=== PATIENT | female | born 1960 | race Caucasian/White ===

== ENCOUNTER 2016-04-25 10:38 | Outpatient (CLI) | payer MEDICARE, OTHER | END 2016-04-25 10:39 | disposition home or self-care (01) | DX: Z01.818 Encounter for other preprocedural examination (principal); N39.0 Urinary tract infection, site not specified; M16.11 Unilateral primary osteoarthritis, right hip; Z01.812 Encounter for preprocedural laboratory examination ==

== ENCOUNTER 2016-07-01 11:04 | Outpatient (CLI) | payer MEDICARE, OTHER | END 2016-07-01 11:05 | disposition home or self-care (01) | DX: R92.1 Mammographic calcification found on diagnostic imaging of breast (principal) ==

== ENCOUNTER 2016-08-11 08:40 | Emergency (ER) | payer MEDICARE, OTHER ==
[2016-08-11] MEDS ORDERED: HYDROmorphone 1 MG/ML SYRINGE IM STA (08:59)
[2016-08-11] MEDS ORDERED: PROMETHAZINE 25 MG/1 ML VIAL IM STA (08:59)
[2016-08-11] MEDS ORDERED: DEXAMETHASONE 10 MG/ML VIAL PO STA (09:00)
== END 2016-08-11 10:12 | disposition home or self-care (01) ==
DX: M54.5 Low back pain (principal); Z96.641 Presence of right artificial hip joint; Z98.890 Other specified postprocedural states; F17.200 Nicotine dependence, unspecified, uncomplicated; Z79.891 Long term (current) use of opiate analgesic; I10 Essential (primary) hypertension; F41.9 Anxiety disorder, unspecified; F32.9 Major depressive disorder, single episode, unspecified; E03.9 Hypothyroidism, unspecified

== ENCOUNTER 2018-12-20 08:00 | Outpatient (CLI) | payer MEDICARE, OTHER ==
[2018-12-20 19:16] LABS: BILIRUBIN,URINE NEGATIVE (NEGATIVE); GLUCOSE, URINE (UA) NEGATIVE (NEGATIVE); KETONES,URINE (UA) NEGATIVE (NEGATIVE); LEUKOCYTE ESTERASE, URINE NEGATIVE (NEGATIVE); NITRITE,URINE NEGATIVE (NEGATIVE); OCCULT BLOOD,URINE TRACE-LYSE (NEGATIVE); PROTEIN,URINE NEGATIVE (NEGATIVE); UROBILINOGEN,URINE 0.2 (NORMAL) E.U./dL (NORMAL)
[2018-12-20 19:21] LABS: CLARITY,URINE CLEAR (CLEAR)
== END 2018-12-20 23:59 | disposition home or self-care (01) ==
LOC: LAB.WCP 08:00
PROVIDERS: ATTEND Physician Assistant Medical
DX: N39.41 Urge incontinence (principal)
CPT/HCPCS: 81001; 81003; 87086

== ENCOUNTER 2019-05-08 06:54 | Emergency (ER) | payer MEDICARE, OTHER ==
--- NOTE | 2019-05-08 07:10 | ED Physician Documentation ---
PD HPI BACK PAIN - Stated complaint Stated Complaint: BACK PX - Chief complaint Chief Complaint: Back Pain - History obtained from History obtained from: Patient - History of Present Illness Timing - onset: How many days ago (5) Timing - duration: Days (5) Timing - details: Gradual onset Location: Lower, Right Quality: Pain Associated symptoms: No: Fever, Weakness, Numbness, Incontinent of urine Worsened by: Other (ambulating) Recently seen: Not recently seen - Additional information Additional information: This is a 58-year-old woman with a longstanding history of low back pain and sciatica who presents with complaints that the sciatic pain is out of control despite taking her regular diclofenac, 10 mg of OxyContin daily and 2 Flexeril twice a day. For the past 5 days the pain is getting progressively worse down the right thigh and into the calf where she is experiencing "charley horses". She is having to walk with a cane because of the pain but does not have true weakness in the leg. She has had a prior back surgery and right total hip replacement. She denies fever, nausea or vomiting, rash. She said what she has been given in the past as an injection of a muscle relaxer and an liquid pink oral medicine when she is coming to the emergency department has always helped her pain. She is on disability for depression and anxiety. Review of Systems Constitutional: denies: Fever Respiratory: denies: Cough GI: denies: Nausea, Vomiting : denies: Dysuria, Incontinent Skin: denies: Rash Musculoskeletal: reports: Back pain Neurologic: denies: Focal weakness, Numbness Psychiatric: reports: Anxiety PD PAST MEDICAL HISTORY - Past Medical History Cardiovascular: Hypertension Endocrine/Autoimmune: HyPOthyroidism Psych: Depression, Anxiety Musculoskeletal: Chronic back pain - Past Surgical History Past Surgical History: Yes General: Other Ortho: Hip replacement - Present Medications Home Medications: Ambulatory Orders Medication Instructions Recorded Confirmed Cholecalciferol (Vitamin D3) 5,000 unit PO DAILY 04/15/14 08/11/16 [Vitamin D] Cyclobenzaprine [Flexeril] 10 mg PO BID 04/15/14 08/11/16 Diclofenac Sodium 50 mg PO BID 04/15/14 08/11/16 Gabapentin 100 mg PO TID 04/15/14 08/11/16 Hydrochlorothiazide 25 mg PO DAILY 04/15/14 08/11/16 Ipratropium [place] [Atrovent Hfa] 2 puffs IH TID PRN 04/15/14 08/11/16 Methylphenidate HCl [Concerta] 54 mg PO DAILY 04/15/14 08/11/16 Oxycodone HCl [Oxycontin] 10 mg PO BID 04/15/14 08/11/16 Trazodone HCl 100 mg PO BIDAC 04/15/14 08/11/16 Ziprasidone [Geodon] 20 mg PO BID 04/15/14 08/11/16 lamoTRIgine [Lamictal] 50 mg PO DAILY 04/15/14 08/11/16 lisinopriL [Lisinopril] 40 mg PO DAILY 04/15/14 08/11/16 predniSONE [Prednisone] 40 mg PO DAILY #10 tablet 08/11/16 Lidocaine Patch 5% [Lidoderm Patch] 1 patch TOP DAILY PRN #10 patch 11/11/18 - Allergies Allergies/Adverse Reactions: Allergies Allergy/AdvReac Type Severity Reaction Status Date / Time albuterol sulfate * Allergy Severe Headache Verified 05/08/19 07:04 [From Combivent] ipratropium bromide * Allergy Severe Headache Verified 05/08/19 07:04 [From Combivent] meloxicam Allergy Severe Anaphylaxis Verified 05/08/19 07:04 varenicline tartrate * Allergy Severe Anaphylaxis Verified 05/08/19 07:04 [From Chantix] - Social History Does the pt smoke?: Yes Smoking Status: Current every day smoker Does the pt drink ETOH?: No Does the pt have substance abuse?: Yes - Immunizations Immunizations are current?: No Immunizations: TDAP >10years/unknown - POLST Patient has POLST: No PD ED PE NORMAL - Vitals Vital signs reviewed: Yes - General General: Alert and oriented X 3, Other (crying. obese. seated in wheelchair.) - HEENT HEENT: Atraumatic, PERRL - Derm Derm: Normal color, Warm and dry, No rash - Extremities Extremities: No deformity, Normal ROM s pain, No edema - Neuro Neuro: Alert and oriented X 3, scientific recruiter 2-12 intact, No motor deficit, No sensory deficit, Normal speech, Other (Reflexes are 1+ and symmetrical at the quadriceps bilaterally. She has a negative seated straight leg raise bilaterally.) - Psych Psych: Normal mood, Normal affect Results - Vitals Vitals: Vital Signs - 24 hr 05/08/19 05/08/19 07:02 08:07 Temperature 36.8 C 36.7 C Heart Rate 93 81 Respiratory 16 20 Rate Blood Pressure 154/97 H 169/97 H O2 Saturation 99 97 Oxygen O2 Source Room air PD MEDICAL DECISION MAKING - ED course Complexity details: reviewed old records, d/w patient, d/w family ED course: Patient has a longstanding history of sciatic disease that she is already prescribed Flexeril for and has OxyContin at home. She is taking diclofenac as well. She is has an acute flare without acute deficit. She is gotten good relief with Dilaudid and Phenergan injection in the past and also some "little pink liquid" that she swallowed which we assume is dexamethasone since I cannot find any indication of that being administered in the chart. She is ordered for 10 mg the next dexamethasone orally and 2 mg of Dilaudid 25 of Phenergan IM. Contact her primary care provider for further pain management. Departure - Departure Disposition: Home, Self Care Clinical Impression: Sciatica Qualifiers: Laterality: right Qualified Code(s): M54.31 - Sciatica, right side Back pain Qualifiers: Back pain location: low back pain Chronicity: chronic Back pain laterality: right Sciatica presence: with sciatica Sciatica laterality: sciatica of right side Qualified Code(s): M54.41 - Lumbago with sciatica, right side Instructions: ED Exercises Lumbar Muscles, ED Sciatica Follow-Up: Anna Torrez PA-C [Primary Care Provider] - Comments: Home today and rest. I did provide you some back stretching exercises that would be safe to do. Continue your chronic medications for your pain. Contact your primary care provider for further pain management. Discharge Date/Time: 05/08/19 08:26
[2019-05-08] MEDS ORDERED: DEXAMETHASONE 10 MG/ML VIAL PO STA (07:39)
[2019-05-08] MEDS ORDERED: HYDROmorphone 1 MG/ML CARPUJECT IM STA (07:39)
[2019-05-08] MEDS ORDERED: CHERRY SYRUP 10 ML UDC PO ONE (07:39)
[2019-05-08] MEDS ORDERED: PROMETHAZINE 25 MG/1 ML VIAL IM STA (07:39)
[2019-05-08 08:08] VITALS: BP 169/97
== END 2019-05-08 08:26 | disposition home or self-care (01) ==
LOC: ED 06:54
DX: M54.41 Lumbago with sciatica, right side (principal); F41.9 Anxiety disorder, unspecified; I10 Essential (primary) hypertension; Z96.641 Presence of right artificial hip joint; F17.200 Nicotine dependence, unspecified, uncomplicated
CPT/HCPCS: 96372; 99283; 99284; A9270; J1170

== ENCOUNTER 2019-05-11 07:40 | Emergency (ER) | payer MEDICARE, OTHER ==
[2019-05-11] MEDS ORDERED: DEXAMETHASONE 10 MG/ML VIAL IVP STA (07:59)
[2019-05-11] MEDS ORDERED: SODIUM CHLORIDE 0.9% 1,000 ML IV ONE (07:59)
[2019-05-11] MEDS ORDERED: KETOROLAC 30 MG/ML VIAL IVP STA (07:59)
--- NOTE | 2019-05-11 08:02 | ED Physician Documentation ---
PD HPI BACK PAIN - Stated complaint Stated Complaint: BACK PX - Chief complaint Chief Complaint: Back Pain - History obtained from History obtained from: Patient - History of Present Illness Timing - onset: How many days ago (5) Timing - duration: Days (5) Timing - details: Abrupt onset, Still present Location: Lower, Right Quality: Pain, Spasm, Sharp, Similar to prior episodes Associated symptoms: No: Fever, Weakness, Numbness, Incontinent of urine, Unable to urinate, Hematuria, Incontinent of stool Improves with: Rest, Position, Meds Worsened by: Movement Contributing factors: Other (stretching) Similar symptoms before: Diagnosis (sciatica) Recently seen: Emergency Dept - Additional information Additional information: 58-year-old female with history of ADHD and hypertension has developed sciatica about 5 days ago after she stretched. She states that she has had some charley horses and she has a bandlike constriction to the right thigh. She has had a hip replacement on the right side. She did get some relief for about 30 hours after a visit to the emergency department where she was administered dexamethasone and Dilaudid. She does have narcotic for use at home. She arrives to the emergency department today in tears with persistent pain. She denies current illness. Review of Systems Constitutional: denies: Fever Eyes: denies: Decreased vision Throat: denies: Sore throat Cardiac: denies: Chest pain / pressure Respiratory: reports: Cough, Wheezing. denies: Dyspnea GI: denies: Vomiting : denies: Dysuria Musculoskeletal: reports: Back pain Neurologic: denies: Generalized weakness, Focal weakness, Numbness PD PAST MEDICAL HISTORY - Past Medical History Cardiovascular: Hypertension Respiratory: COPD, Sleep apnea, CPAP use Neuro: None Endocrine/Autoimmune: HyPOthyroidism HEENT: None Psych: Depression, Anxiety Musculoskeletal: Chronic back pain - Past Surgical History Past Surgical History: Yes General: Other Ortho: Hip replacement - Present Medications Home Medications: Ambulatory Orders Medication Instructions Recorded Confirmed Cholecalciferol (Vitamin D3) 5,000 unit PO DAILY 04/15/14 08/11/16 [Vitamin D] Cyclobenzaprine [Flexeril] 10 mg PO BID 04/15/14 08/11/16 Diclofenac Sodium 50 mg PO BID 04/15/14 08/11/16 Gabapentin 100 mg PO TID 04/15/14 08/11/16 Hydrochlorothiazide 25 mg PO DAILY 04/15/14 08/11/16 Ipratropium [place] [Atrovent Hfa] 2 puffs IH TID PRN 04/15/14 08/11/16 Methylphenidate HCl [Concerta] 54 mg PO DAILY 04/15/14 08/11/16 Oxycodone HCl [Oxycontin] 10 mg PO BID 04/15/14 08/11/16 Trazodone HCl 100 mg PO BIDAC 04/15/14 08/11/16 Ziprasidone [Geodon] 20 mg PO BID 04/15/14 08/11/16 lamoTRIgine [Lamictal] 50 mg PO DAILY 04/15/14 08/11/16 lisinopriL [Lisinopril] 40 mg PO DAILY 04/15/14 08/11/16 - Allergies Allergies/Adverse Reactions: Allergies Allergy/AdvReac Type Severity Reaction Status Date / Time albuterol sulfate * Allergy Severe Headache Verified 05/11/19 07:55 [From Combivent] ipratropium bromide * Allergy Severe Headache Verified 05/11/19 07:55 [From Combivent] meloxicam Allergy Severe Anaphylaxis Verified 05/11/19 07:55 varenicline tartrate * Allergy Severe Anaphylaxis Verified 05/11/19 07:55 [From Chantix] - Social History Does the pt smoke?: Yes Smoking Status: Current every day smoker Does the pt drink ETOH?: No Does the pt have substance abuse?: Yes - Immunizations Immunizations are current?: No Immunizations: TDAP >10years/unknown - POLST Patient has POLST: No PD ED PE NORMAL - Vitals Vital signs reviewed: Yes (Tachycardic and hypertensive) - General General: Alert and oriented X 3, Well developed/nourished, Other (58-year-old female with tears in her eyes is complaining of back pain.) - HEENT HEENT: Atraumatic, PERRL, EOMI - Cardiac Cardiac: RRR, No murmur - Respiratory Respiratory: No respiratory distress, Other (scattered wheezes and rhonchi) - Abdomen Abdomen: Soft, Non tender - Back Back: No CVA TTP, No spinal TTP, Other (There is tenderness to the paraspinous muscles in the right lower lumbar region extending into the right sciatic notch.) - Derm Derm: Normal color, Warm and dry, No rash - Extremities Extremities: No deformity, No edema - Neuro Neuro: belt knife feeder 2-12 intact, No motor deficit, No sensory deficit, Normal speech Eye Opening: Spontaneous Motor: Obeys Commands Verbal: Oriented GCS Score: 15 - Psych Psych: Other (Mood is defeated and the affect is blunted.) Results - Vitals Vitals: Vital Signs - 24 hr 05/11/19 07:52 Temperature 36.7 C Heart Rate 113 H Respiratory 18 Rate Blood Pressure 160/103 H O2 Saturation 95 Oxygen O2 Source Room air - Labs Labs: Laboratory Tests 05/11/19 05/11/19 05/11/19 08:20 08:20 09:16 WBC 18.0 H RBC 5.14 Hgb 14.6 Hct 45.9 MCV 89.3 MCH 28.4 MCHC 31.8 L RDW 14.2 Plt Count 374 MPV 9.4 Neut # (Auto) Not Reportable Lymph # (Auto) Not Reportable [place] # (Auto) Not Reportable Eos # (Auto) Not Reportable Baso # (Auto) Not Reportable Absolute Nucleated RBC Not Reportable Total Counted 100 Band Neuts % (Manual) 0 Reactive Lymphs % (Man) 3 Abnorm Lymph % (Manual) 0 Nucleated RBC % Not Reportable Neutrophils # (Manual) 9.2 H Lymphocytes # (Manual) 7.4 H Monocytes # (Manual) 1.1 H Eosinophils # (Manual) 0.4 Basophils # (Manual) 0.0 Differential Comment MANUAL DIFFERENTIAL Platelet Estimate NORMAL (130-450,000) Platelet Morphology NORMAL APPEARANCE RBC Morph Micro Appear NORMAL APPEARANCE Sodium 138 Potassium 3.4 L Chloride 99 L Carbon Dioxide 27 Anion Gap 12.0 BUN 15 Creatinine 0.7 Estimated GFR (MDRD) 86 L Glucose 106 H Calcium 9.3 Total Bilirubin 0.8 AST 20 ALT 22 Alkaline Phosphatase 76 Total Protein 8.0 Albumin 4.2 Globulin 3.8 Albumin/Globulin Ratio 1.1 Lipase 29 Urine Color LT. YELLOW Urine Clarity CLEAR Urine pH 7.0 Ur Specific [place] 1.010 Urine Protein NEGATIVE Urine Glucose (UA) NEGATIVE Urine Ketones NEGATIVE Urine Occult Blood NEGATIVE Urine Nitrite NEGATIVE Urine Bilirubin NEGATIVE Urine Urobilinogen 0.2 (NORMAL) Ur Leukocyte Esterase NEGATIVE Ur Microscopic Review NOT INDICATED Urine Culture Comments NOT INDICATED Procedures - IVC sono (time) 0755 Bedside IVC sono: IVC measures (cm) (0.74), IVC collapsed c insp (cm) (complete), Dehydration (est 2+ liters deficit) PD MEDICAL DECISION MAKING - ED course Complexity details: reviewed old records, reviewed results, re-evaluated patient, considered differential, d/w patient ED course: 58-year-old female returns to the emergency department after successful treatment for sciatica 4 days ago. She has recurrence of her severe pain and charley horses. She arrives hypertensive and tachycardic and dehydration is suspected. The bedside ultrasound is used to interrogate the inferior vena cava and the vessel is small and completely collapsing consistent with a volume deficit of greater than 2 L. She is administered intravenous saline Toradol and dexamethasone. The patient has marked improvement in her symptoms without the use of narcotic pain reliever. Her white blood cell count is markedly elevated and the urine is processed. Departure - Departure Disposition: 01 Home, Self Care Clinical Impression: Dehydration Sciatica Qualifiers: Laterality: right Qualified Code(s): M54.31 - Sciatica, right side Condition: Stable Instructions: ED Dehydration, ED Sciatica Follow-Up: Anna Torrez PA-C [Primary Care Provider] -
[2019-05-11 08:37] LABS: BASOPHILS % (AUTO) 0.6 %; EOSINOPHILS % (AUTO) 0.3 %; HGB - HEMOGLOBIN 14.6 g/dL (12.0-16.0); LYMPHOCYTES % (AUTO) 35.7 %; MEAN CORPUSCULAR HEMOGLOBIN 28.4 pg (27.0-31.0); MEAN CORPUSCULAR HGB CONC 31.8 g/dL (32.0-36.0); MEAN CORPUSCULAR VOLUME 89.3 fL (81.0-99.0); MEAN PLATELET VOLUME 9.4 fL (7.9-10.8); MONOCYTES % (AUTO) 8.6 %; NEUTROPHILS % (AUTO) 53.5 %; PLT - PLATELET COUNT 374 10^3/uL (130-450); RED BLOOD COUNT 5.14 10^6/uL (4.20-5.40); RED CELL DISTRIBUTION WIDTH 14.2 % (12.0-15.0)
[2019-05-11 08:40] LABS: ALBUMIN 4.2 g/dL (3.2-5.5); ALBUMIN/GLOBULIN RATIO 1.1 (1.0-2.2); BILIRUBIN,TOTAL 0.8 mg/dL (0.2-1.0); CALCIUM 9.3 mg/dL (8.5-10.3); CREATININE 0.7 mg/dL (0.4-1.0)
[2019-05-11 08:43] LABS: ABNORMAL LYMPHS % (MANUAL) 0 %; BAND NEUTROPHILS % (MANUAL) 0 %
[2019-05-11] MEDS ORDERED: POTASSIUM CHLORIDE 20 MEQ TABLET PO STA (08:54)
[2019-05-11 09:00] LABS: DIFFERENTIAL COMMENT MANUAL DIFFERENTIAL; EOSINOPHILS # (MANUAL) 0.4 10^3/uL (0-0.7); LYMPHOCYTES # (MANUAL) 7.4 10^3/uL (1.5-3.5); LYMPHOCYTES % (MANUAL) 38 %; MONOCYTES # (MANUAL) 1.1 10^3/uL (0.0-1.0); PLATELET ESTIMATE, MANUAL NORMAL (130-450,000) (NORMAL); PLATELET MORPHOLOGY NORMAL APPEARANCE (NORMAL); RBC MORPHOLOGY (MULTIPLE) NORMAL APPEARANCE (NORMAL)
[2019-05-11 09:26] LABS: BILIRUBIN,URINE NEGATIVE (NEGATIVE); GLUCOSE, URINE (UA) NEGATIVE (NEGATIVE); KETONES,URINE (UA) NEGATIVE (NEGATIVE); LEUKOCYTE ESTERASE, URINE NEGATIVE (NEGATIVE); NITRITE,URINE NEGATIVE (NEGATIVE); OCCULT BLOOD,URINE NEGATIVE (NEGATIVE); PROTEIN,URINE NEGATIVE (NEGATIVE); UROBILINOGEN,URINE 0.2 (NORMAL) E.U./dL (NORMAL)
[2019-05-11 09:27] LABS: CLARITY,URINE CLEAR (CLEAR)
[2019-05-11 09:53] VITALS: BP 144/82
== END 2019-05-11 09:48 | disposition home or self-care (01) ==
LOC: ED 07:40
DX: M54.41 Lumbago with sciatica, right side (principal); E86.0 Dehydration; D72.829 Elevated white blood cell count, unspecified; J44.9 Chronic obstructive pulmonary disease, unspecified; F17.200 Nicotine dependence, unspecified, uncomplicated; I10 Essential (primary) hypertension; F90.9 Attention-deficit hyperactivity disorder, unspecified type; Z96.641 Presence of right artificial hip joint
CPT/HCPCS: 36415; 80053; 81003; 83690; 85025; 96361; 96374; 99283; 99284; A9270; 81001; 87086

== ENCOUNTER 2019-05-21 07:00 | Outpatient (CLI) | payer MEDICARE, OTHER ==
[2019-05-21 18:50] LABS: BASOPHILS # (AUTO) 0.1 10^3/uL (0.0-0.1); BASOPHILS % (AUTO) 0.6 %; EOSINOPHILS # (AUTO) 0.2 10^3/uL (0.0-0.7); EOSINOPHILS % (AUTO) 1.2 %; HGB - HEMOGLOBIN 14.6 g/dL (12.0-16.0); LYMPHOCYTES # (AUTO) 3.3 10^3/uL (1.5-3.5); LYMPHOCYTES % (AUTO) 26.1 %; MEAN CORPUSCULAR HEMOGLOBIN 28.7 pg (27.0-31.0); MEAN CORPUSCULAR VOLUME 92.5 fL (81.0-99.0); MEAN PLATELET VOLUME 9.4 fL (7.9-10.8); MONOCYTES # (AUTO) 1.2 10^3/uL (0.0-1.0); MONOCYTES % (AUTO) 9.2 %; NEUTROPHILS # (AUTO) 7.9 10^3/uL (1.5-6.6); NEUTROPHILS % (AUTO) 62.3 %; PLT - PLATELET COUNT 307 10^3/uL (130-450); RED BLOOD COUNT 5.09 10^6/uL (4.20-5.40); RED CELL DISTRIBUTION WIDTH 14.6 % (12.0-15.0); WHITE BLOOD COUNT 12.7 x10^3/uL (4.8-10.8)
== END 2019-05-21 23:59 | disposition home or self-care (01) ==
LOC: LAB.WCP 07:00
PROVIDERS: ATTEND Physician Assistant Medical
DX: M54.30 Sciatica, unspecified side (principal)
CPT/HCPCS: 36415; 85025

== ENCOUNTER 2019-05-25 01:33 | Emergency (ER) | payer MEDICARE, OTHER ==
--- NOTE | 2019-05-25 02:33 | ED Physician Documentation ---
PD HPI BACK PAIN - Stated complaint Stated Complaint: HIP PX - Chief complaint Chief Complaint: Ext Problem - History obtained from History obtained from: Patient - History of Present Illness Timing - onset: Other (05/05) Timing - details: Gradual onset, Constant, Waxing and waning Pain level max: 10 Pain level now: 10 Location: Right Quality: Pain Associated symptoms: No: Fever, Weakness, Numbness, Incontinent of urine, Unable to urinate, Hematuria, Incontinent of stool Improves with: Nothing Worsened by: Other (some movement exacerbates the pain, but not all (she can weight-bear and ambulate without exacerbation most of the time)) Recently seen: Emergency Dept - Additional information Additional information: c/o right hip pain since 05/05. she was T+R twice from this ED for this, and seen in outpatient setting. denies injury. she has had right hip surgery with placement of prosthesis. she was given dilaudid, toradol, and steroids on previous visits with transient relief but pain returns within no more than, per patient, 30 hours. she had blood work in ED last month with leukocytosis but a few days ago she had repeat blood tests and this revealed markedly improved wbc (in 12k range) Review of Systems Constitutional: reports: Reviewed and negative Cardiac: reports: Reviewed and negative Respiratory: reports: Reviewed and negative GI: reports: Reviewed and negative Skin: denies: Rash Musculoskeletal: reports: Joint pain. denies: Back pain, Extremity pain, Extremity swelling, Joint swelling, Pain with weight bearing Neurologic: denies: Focal weakness, Numbness PD PAST MEDICAL HISTORY - Past Medical History Past Medical History: Yes Cardiovascular: Hypertension Respiratory: COPD, Sleep apnea, CPAP use Neuro: None Endocrine/Autoimmune: HyPOthyroidism HEENT: None Psych: Depression, Anxiety Musculoskeletal: Chronic back pain - Past Surgical History Past Surgical History: Yes General: Other Ortho: Hip replacement - Present Medications Home Medications: Ambulatory Orders Medication Instructions Recorded Confirmed Cholecalciferol (Vitamin D3) 5,000 unit PO DAILY 04/15/14 08/11/16 [Vitamin D] Cyclobenzaprine [Flexeril] 10 mg PO BID 04/15/14 08/11/16 Diclofenac Sodium 50 mg PO BID 04/15/14 08/11/16 Gabapentin 100 mg PO TID 04/15/14 08/11/16 Hydrochlorothiazide 25 mg PO DAILY 04/15/14 08/11/16 Ipratropium [place] [Atrovent Hfa] 2 puffs IH TID PRN 04/15/14 08/11/16 Methylphenidate HCl [Concerta] 54 mg PO DAILY 04/15/14 08/11/16 Oxycodone HCl [Oxycontin] 10 mg PO BID 04/15/14 08/11/16 Trazodone HCl 100 mg PO BIDAC 04/15/14 08/11/16 Ziprasidone [Geodon] 20 mg PO BID 04/15/14 08/11/16 lamoTRIgine [Lamictal] 50 mg PO DAILY 04/15/14 08/11/16 lisinopriL [Lisinopril] 40 mg PO DAILY 04/15/14 08/11/16 HYDROmorphone [Dilaudid] 2 mg PO Q4H PRN #20 tablet 05/25/19 - Allergies Allergies/Adverse Reactions: Allergies Allergy/AdvReac Type Severity Reaction Status Date / Time albuterol sulfate * Allergy Severe Headache Verified 05/11/19 07:55 [From Combivent] ipratropium bromide * Allergy Severe Headache Verified 05/11/19 07:55 [From Combivent] meloxicam Allergy Severe Anaphylaxis Verified 05/11/19 07:55 varenicline tartrate * Allergy Severe Anaphylaxis Verified 05/11/19 07:55 [From Chantix] dogs and grasses Allergy Unknown Uncoded 05/13/19 07:44 - Social History Does the pt smoke?: Yes Smoking Status: Current every day smoker Does the pt drink ETOH?: No Does the pt have substance abuse?: Yes - Immunizations Immunizations are current?: No Immunizations: TDAP >10years/unknown - POLST Patient has POLST: No PD ED PE NORMAL - Vitals Vital signs reviewed: Yes - General General: Alert and oriented X 3, Well developed/nourished, Other (appears to be in painful discomfort. crying at times, constantly reaching for tissues to dab at eyes) - Cardiac Cardiac: No murmur - Derm Derm: Normal color, Warm and dry, No rash - Extremities Extremities: No tenderness to palpate, Normal ROM s pain (FROm right hip including f/e and internal and external rotation), No edema. No: No calf tenderness / cord - Neuro Neuro: No motor deficit, No sensory deficit PD ED PE EXPANDED - Cardiac Cardiac: Tachy, Regular Rhythm - Extremities Extremities: No: Red warm joint Results - Vitals Vitals: Oxygen O2 Source Room air PD MEDICAL DECISION MAKING - ED course Complexity details: reviewed old records, re-evaluated patient, considered differential, d/w patient ED course: ongoing right hip pain since mid-last month. denies trauma, denies fever/chills/sweats. the right hip is nontender on exam and without rash or abnormal warmth to touch. recent blood work is reassuring. I explained to her that she will likely benefit from further evaluation and possibly further testing, but emergent intervention beyond pain control not indicated at this time. given im dilaudid and toradol with good effect. on reevaluation, she is sitting on edge of stretcher comfortably and awake, reports good relief of pain and is comfortable with d/c home Departure - Departure Disposition: 01 Home, Self Care Clinical Impression: Hip pain, right Condition: Good Instructions: ED Joint Pain Follow-Up: Anna Torrez PA-C [Primary Care Provider] - Prescriptions: HYDROmorphone [Dilaudid] 2 mg PO Q4H PRN #20 tablet PRN Reason: Pain Discharge Date/Time: 05/25/19 05:03
[2019-05-25] MEDS ORDERED: HYDROmorphone 2 MG/ML VIAL IM STA (03:08)
[2019-05-25] MEDS ORDERED: KETOROLAC 60 MG/2 ML VIAL IM STA (03:09)
[2019-05-25] MEDS ORDERED: HYDROmorphone 1 MG/ML CARPUJECT IM STA (04:38)
[2019-05-25 05:04] VITALS: BP 178/90
== END 2019-05-25 05:03 | disposition home or self-care (01) ==
LOC: ED 01:33
DX: M25.551 Pain in right hip (principal); Z96.641 Presence of right artificial hip joint; I10 Essential (primary) hypertension; F17.200 Nicotine dependence, unspecified, uncomplicated
CPT/HCPCS: 96372; 99283; 99284; J1170

== ENCOUNTER 2019-05-28 12:54 | Outpatient (CLI) | payer MEDICARE, OTHER ==
[2019-05-28 13:17] LABS: BASOPHILS # (AUTO) 0.1 10^3/uL (0.0-0.1); BASOPHILS % (AUTO) 0.4 %; EOSINOPHILS % (AUTO) 0.1 %; HGB - HEMOGLOBIN 14.7 g/dL (12.0-16.0); LYMPHOCYTES # (AUTO) 2.6 10^3/uL (1.5-3.5); LYMPHOCYTES % (AUTO) 15.5 %; MEAN CORPUSCULAR HEMOGLOBIN 29.5 pg (27.0-31.0); MEAN CORPUSCULAR HGB CONC 32.5 g/dL (32.0-36.0); MEAN CORPUSCULAR VOLUME 90.8 fL (81.0-99.0); MEAN PLATELET VOLUME 9.2 fL (7.9-10.8); MONOCYTES # (AUTO) 0.9 10^3/uL (0.0-1.0); MONOCYTES % (AUTO) 5.3 %; NEUTROPHILS # (AUTO) 13.3 10^3/uL (1.5-6.6); PLT - PLATELET COUNT 333 10^3/uL (130-450); RED BLOOD COUNT 4.98 10^6/uL (4.20-5.40); RED CELL DISTRIBUTION WIDTH 14.6 % (12.0-15.0)
[2019-05-28 13:18] LABS: BILIRUBIN,URINE NEGATIVE (NEGATIVE); GLUCOSE, URINE (UA) NEGATIVE (NEGATIVE); KETONES,URINE (UA) NEGATIVE (NEGATIVE); LEUKOCYTE ESTERASE, URINE NEGATIVE (NEGATIVE); NITRITE,URINE NEGATIVE (NEGATIVE); OCCULT BLOOD,URINE NEGATIVE (NEGATIVE); PROTEIN,URINE NEGATIVE (NEGATIVE); UROBILINOGEN,URINE 0.2 (NORMAL) E.U./dL (NORMAL)
[2019-05-28 13:20] LABS: CLARITY,URINE CLEAR (CLEAR)
[2019-05-28 13:32] LABS: ALBUMIN 4.2 g/dL (3.2-5.5); ALBUMIN/GLOBULIN RATIO 1.2 (1.0-2.2); BILIRUBIN,TOTAL 0.8 mg/dL (0.2-1.0); CALCIUM 9.3 mg/dL (8.5-10.3); CREATININE 0.7 mg/dL (0.4-1.0); CRP - C-REACTIVE PROTEIN 1.9 mg/dL (0-1.0); TOTAL PROTEIN 7.8 g/dL (6.7-8.2)
== END 2019-05-28 12:55 | disposition home or self-care (01) ==
LOC: LAB 12:54
PROVIDERS: ATTEND Physician Assistant Medical
DX: M54.5 Low back pain (principal)
CPT/HCPCS: 36415; 80053; 81001; 81003; 85025; 85651; 86140; 86200; 87086

== ENCOUNTER 2020-04-06 11:24 | Outpatient (CLI) | payer MEDICARE, OTHER ==
[2020-04-06 11:55] LABS: BASOPHILS # (AUTO) 0.1 10^3/uL (0.0-0.1); BASOPHILS % (AUTO) 0.7 %; EOSINOPHILS # (AUTO) 0.2 10^3/uL (0.0-0.7); EOSINOPHILS % (AUTO) 2.1 %; HGB - HEMOGLOBIN 13.9 g/dL (12.0-16.0); LYMPHOCYTES # (AUTO) 2.8 10^3/uL (1.5-3.5); LYMPHOCYTES % (AUTO) 26.7 %; MEAN CORPUSCULAR HEMOGLOBIN 28.8 pg (27.0-31.0); MEAN CORPUSCULAR HGB CONC 31.1 g/dL (32.0-36.0); MEAN CORPUSCULAR VOLUME 92.7 fL (81.0-99.0); MEAN PLATELET VOLUME 9.2 fL (7.9-10.8); MONOCYTES # (AUTO) 0.9 10^3/uL (0.0-1.0); MONOCYTES % (AUTO) 8.2 %; NEUTROPHILS # (AUTO) 6.5 10^3/uL (1.5-6.6); NEUTROPHILS % (AUTO) 62.1 %; PLT - PLATELET COUNT 325 10^3/uL (130-450); RED BLOOD COUNT 4.82 10^6/uL (4.20-5.40); RED CELL DISTRIBUTION WIDTH 13.7 % (12.0-15.0); WHITE BLOOD COUNT 10.4 x10^3/uL (4.8-10.8)
[2020-04-06 12:18] LABS: ALBUMIN 4.2 g/dL (3.2-5.5); ALBUMIN/GLOBULIN RATIO 1.2 (1.0-2.2); ALKALINE PHOSPHATASE 83 IU/L (42-121); ALT ALANINE AMINOTRANSFERASE 19 IU/L (10-60); AST ASPARTATE AMINOTRANSFERASE 18 IU/L (10-42); BILIRUBIN,TOTAL 0.6 mg/dL (0.2-1.0); BUN - BLOOD UREA NITROGEN 11 mg/dL (6-20); CALCIUM 9.3 mg/dL (8.5-10.3); CARBON DIOXIDE - CO2 27 mmol/L (21-32); CHLORIDE 103 mmol/L (101-111); CHOL/HDL RATIO 4.8 (<4.4); CHOLESTEROL 244 mg/dL; CREATININE 0.6 mg/dL (0.4-1.0); GLUCOSE 103 mg/dL (70-100); HDL CHOLESTEROL 51 mg/dL; LDL CHOLESTEROL,CALCULATED 172 mg/dL; LDL/HDL RATIO 3.4 (<4.4); SODIUM 139 mmol/L (135-145); TOTAL PROTEIN 7.8 g/dL (6.7-8.2); VLDL CHOLESTEROL 21 mg/dL
[2020-04-06 12:24] LABS: THYROID STIMULATING HORMONE 1.33 uIU/mL (0.34-5.60)
[2020-04-06 12:29] LABS: FERRITIN 64.2 ng/mL (11.0-306.8)
== END 2020-04-06 11:25 | disposition home or self-care (01) ==
LOC: LAB 11:24
PROVIDERS: ATTEND Physician Assistant Medical
DX: I10 Essential (primary) hypertension (principal); L65.9 Nonscarring hair loss, unspecified; E78.5 Hyperlipidemia, unspecified
CPT/HCPCS: 36415; 80053; 80061; 82728; 83721; 84443; 85025

== ENCOUNTER 2020-04-28 10:56 | Outpatient (CLI) | payer MEDICARE, OTHER ==
--- NOTE | 2020-04-28 16:13 | DEXA Report ---
PROCEDURE: Dexa Spine and/or Hip INDICATIONS: POST MENOPAUSAL TECHNIQUE: Dual energy x-ray absorptiometry (DXA) was performed on a [employer] System. Regions measur ed are the AP Spine, femoral neck, and if needed forearm. COMPARISON: None. FINDINGS: Lumbar Spine: Bone Mineral Density 1.554 g/cm/cm,T score 2.9, normal Left Hip: Bone Mineral Density 0.849 g/cm/cm,T score -1.3, osteopenia Left Femoral Neck: Bone Mineral Density 0.808 g/cm/cm, T score -1.7, osteopenia Left 0.640 (radius total) forearm: Bone Mineral Density 0.640 g/cm/cm, T score -0.6, osteopenia (T score greater or equal to -1.0: NORMAL) (T score from -1.1 to -2.4: OSTEOPENIA) (T score less than or equal to -2.5 to: OSTEOPOROSIS) Impression: The bone mineral density value at the lumbosacral spine appears artifactually elevated in density secondary to degenerative changes. Therefore the normal value seen in that area is considere d inaccurate. However the left hip and left femoral neck and the left forearm radius bone mineral den sity documentation of osteopenia is considered accurate. Patients with diagnosis of osteoporosis or osteopenia should have regular bone mineral density assess ment. For those eligible for Medicare, routine testing is allowed once every 2 years. Testing frequ ency can be increased for patients who have rapidly progressing disease or for those who are receivin g medical therapy to restore bone mass. Reviewed by: Patrick Jaimes MD on 04/28/2020 4:12 PM PST Approved by: Patrick Jaimes MD on 04/28/2020 4:12 PM PST Station ID: [id number]
== END 2020-04-28 10:57 | disposition home or self-care (01) ==
LOC: DI 10:56
PROVIDERS: ATTEND Physician Assistant Medical
DX: M85.89 Other specified disorders of bone density and structure, multiple sites (principal); Z78.0 Asymptomatic menopausal state

== ENCOUNTER 2020-10-04 09:07 | Outpatient (CLI) | payer MEDICARE, OTHER ==
[2020-10-04 10:35] LABS: CHOL/HDL RATIO 4.3 (<4.4); CHOLESTEROL 230 mg/dL; HDL CHOLESTEROL 54 mg/dL; LDL CHOLESTEROL,CALCULATED 160 mg/dL; TRIGLYCERIDES 78 mg/dL; VLDL CHOLESTEROL 16 mg/dL
== END 2020-10-04 09:08 | disposition home or self-care (01) ==
LOC: LAB 09:07
PROVIDERS: ATTEND Physician Assistant Medical
DX: E78.5 Hyperlipidemia, unspecified (principal)
CPT/HCPCS: 36415; 80061; 83721

== ENCOUNTER 2020-12-10 07:49 | Outpatient (CLI) | payer MEDICARE, OTHER ==
--- NOTE | 2020-12-10 12:30 | Ultrasound Report ---
PROCEDURE: Aorta Screening INDICATIONS: TOBACCO ABUSE TECHNIQUE: Real time scanning was performed of the aorta and iliac arteries, with image documentatio n. COMPARISON: None FINDINGS: Aorta: Proximal aortic diameter measures 2.6 x 2.8 cm. Mid-aorta measures 1.9 x 2.3 cm. Distal aor tic diameter is 1.6 x 1.6 cm. Iliac arteries: Right common iliac artery measures 1.1 x 1.2 cm. Left common iliac artery measures 1.1 x 1.4 cm. IMPRESSION: No abdominal aortic aneurysm. Reviewed by: Caprice Quinones MD, PhD on 12/10/2020 12:29 PM PDT Approved by: Caprice Quinones MD, PhD on 12/10/2020 12:29 PM PDT Station ID: [id number]
--- NOTE | 2020-12-10 15:49 | CT Report ---
PROCEDURE: Low Dose Lung Cancer Screen INDICATIONS: CURRENT SMOKER TECHNIQUE: Noncontrast low-dose images were acquired from the pulmonary apices to the posterior costophrenic ang les. Multiplanar MIP reformats were then acquired. For radiation dose reduction, the following was used: automated exposure control, adjustment of mA and/or kV according to patient size. COMPARISON: February 05, 2016 FINDINGS: Image quality: Excellent. Lungs and pleura: On image 4/133, there is a 4 mm subpleural solid nodule in the superior segment of the right lower lobe, which in retrospect was present on the prior exam. On image 4/331, there is a solid subpleural 5 mm nodule in the left lower lobe, also stable from the prior. There is no focal in filtrate, pneumothorax or pleural effusion. Mediastinum: Heart size is normal. Dense coronary artery vascular calcification present. No pericar dial effusion. No mediastinal adenopathy by size criteria. Thoracic aorta and central pulmonary art eries are normal in size. Esophagus is normal in caliber. No hiatal hernia. Bones and chest wall: No suspicious bony lesions. No vertebral body compression fractures. No axil geovanna or supraclavicular adenopathy by size criteria. The thyroid is normal in size and there are no incidental findings. Abdomen: Visualized upper abdomen solid organs and bowel loops appear normal in the absence of contr ast. IMPRESSION: 1. Small subpleural nodules in the right lower and left lower lobes are stable from the prior exam 20 16. Lung RADS category 2. Continue annual screening. Reviewed by: Karl Ta MD on 12/10/2020 2:48 PM AKDT Approved by: Karl Ta MD on 12/10/2020 2:48 PM AKDT Station ID: [id number]
== END 2020-12-10 07:50 | disposition home or self-care (01) ==
LOC: DI 07:49
PROVIDERS: ATTEND Physician Assistant Medical
DX: Z12.2 Encounter for screening for malignant neoplasm of respiratory organs (principal); Z13.6 Encounter for screening for cardiovascular disorders; R91.8 Other nonspecific abnormal finding of lung field; F17.210 Nicotine dependence, cigarettes, uncomplicated

== ENCOUNTER 2021-10-13 08:51 | Outpatient (CLI) | payer MEDICARE, OTHER ==
--- NOTE | 2021-10-14 09:31 | MRI Report ---
PROCEDURE: Shoulder LT W/O INDICATIONS: LEFT SHOULDER IMPINGEMENT TECHNIQUE: Noncontrast oblique coronal T2 fast spin echo with fat saturation, oblique sagittal T1 spin echo and T2 fast spin echo with fat saturation, axial T1 spin echo and T2 fast spin echo with fat saturation t hrough the shoulder. COMPARISON: None. FINDINGS: Image quality: Excellent. Rotator cuff: There is full-thickness tear of the supraspinatus tendon measuring 2.1 cm AP and 1.7 cm transverse. There is mild supraspinous muscle atrophy. There is partial-thickness tear of the infras pinatus and subscapularis tendons with superimposed moderate tendinosis. Bones and bursae: No bone marrow contusions or fractures. Moderate acromioclavicular and glenohumera l joint degeneration. The acromion demonstrates conventional anatomy, without an os acromiale. Small glenohumeral joint effusion. Capsule and soft tissues: There is degenerative fraying of the glenoid labrum, most pronounced in the superior labrum. In the absence of intra-articular contrast, the glenohumeral ligaments appear intac t. The long head of the biceps tendon demonstrates normal location and morphology. The rotator inte rval appears normal, without fibrosis. The coracohumeral ligament is normal in thickness. IMPRESSION: 1. Full-thickness tear of the supraspinous tendon. 2. Partial-thickness tear of the infraspinatus and subscapularis tendons with moderate tendinosis. 3. Moderate acromioclavicular and glenohumeral joint degeneration. 4. Degenerative labral fraying. 5. Moderate glenohumeral joint effusion. Reviewed by: Andre Hidalgo MD on 10/14/2021 9:30 AM PDT Approved by: Andre Hidalgo MD on 10/14/2021 9:30 AM PDT Station ID: [id number]
== END 2021-10-13 08:52 | disposition home or self-care (01) ==
LOC: DI 08:51
PROVIDERS: ATTEND Physician Assistant Medical
DX: M75.122 Complete rotator cuff tear or rupture of left shoulder, not specified as traumatic (principal); M19.012 Primary osteoarthritis, left shoulder; M75.82 Other shoulder lesions, left shoulder; M25.412 Effusion, left shoulder

== ENCOUNTER 2021-12-21 13:22 | Outpatient (CLI) | payer MEDICARE, OTHER ==
[2021-12-21 14:14] VITALS: BP 156/90
--- NOTE | 2021-12-21 14:14 | SLEEP CARE CONSULTATION ---
Information from patient questionnaire entered by Destini Ramsey. I have reviewed and concur with the information entered by Destini Ramsey. This document represents the service I personally performed and the decisions made by me, Gretchen Arechiga ARNP. History of Present Illness Service Date and Time: 12/21/2021 1322 Reason for Visit: Previously diagnosed sleep apnea (UPDATE SUPPLIES, NEW MACHINE), sleep apnea on CPAP therapy, Re-establish care Chief Complaint: reports: Other (needs supplies and new CPAP device) Usual bedtime: 2AM Time it takes to fall asleep: 10-15 MINUTES Snores at night: No Observed to quit breathing while asleep: Yes Sleeps alone due to snoring: No Number of times waking at night: 2 Reasons for waking at night: reports: Pain Toss, Turn, or Twitch while sleeping: Yes Recalls having dreams: No Usually gets out of bed at: 8AM Feels refreshed in the morning: No Morning headache: No Sleepy or fatigued during the day: Yes Ever fallen asleep while driving: No Takes day naps: Yes (SOMETIMES) Dreams during day naps: No Prior sleep studies: Yes Year and Where: 01/07/2010, [facility] Type of Sleep Study: Polysomnography Additional HPI information: JO ANN ALEJANDRO was previously diagnosed to have extremely severe, AHI 96.9, obstructive sleep apnea-hypopnea syndrome and comes in today to re-establish care for CPAP therapy. - Parasomnia Symptoms Ever been unable to move upon waking from sleep: No Walks in sleep: No Talks in sleep: No Ever acted out dreams in sleep: No Ever felt weak in the knees when startled or emotional: No Bothered by creepy, crawly, restless sensations in legs: No Problems with memory or concentration: Yes CPAP Compliance Data - Data Reviewed with Patient Average duration of nightly device use: 6 hours 31 mins Compliance rate %: 97.8 (90/90 days used) Current pressure setting (cmH2O): 16.0 Average residual AHI: 0.7 Average large leak: 2 mins 30 secs Compliance data discussion: She has an old CPAP machine that is 12 years old and will, about 1 time a week, lose pressure during the night. She states sometimes it will not turn on. She is getting her supplies through a [facility] ([facility] [employer]). She is using a full face mask but would like to change her mask style. Subjective Patient concerns: reports: other (hair loss and teeth movement from current mask). denies: aerophagia, mask discomfort, air blowing in eyes, mask leak noise, condensation in mask/hose, nasal congestion, dry mouth, nose, throat, epistaxis Observed to snore while using device: No Current pressure setting perceived as: comfortable (sometimes she wishes it was "a little more") On therapy, patient: reports: sleeping better, awakening more refreshed, being more awake and alert during the day, more rested overall, other (does not rest without her CPAP). denies: drowsiness while driving Initial [place] Sleepiness Scale score: 6 (12/17/21) Past Medical History Past Medical History: reports: Hypertension, Arrythmia, Anxiety, Depression, Mood disorder (Bipolar), Other (PTSD) Social History The patient's occupation is a RE. Patient is and lives in [place]. Have you smoked in the past 12 months: Yes (marijuana user) Cigarettes per day (20/pack): 20 Years of smokin Smoking Pack Years: 45.0 Alcohol use: No Caffeine use: Yes Caffeine amount and frequency: 1 CUP OF COFFEE, 1-2 PEPSI Family History Family history of sleep disordered breathing: Yes Family Hx Sleep Apnea: Father: Snoring Allergies and Home Medications Known drug allergies: Yes Drug allergies reviewed: Yes (Chantix; Provental, albuterol, ipratropium, meloxicam) Home medication list reviewed: Yes Allergy and home medication list: Allergies albuterol sulfate * [From Combivent] Allergy (Severe, Verified 05/11/19 07:55) Headache ipratropium bromide * [From Combivent] Allergy (Severe, Verified 05/11/19 07:55) Headache meloxicam Allergy (Severe, Verified 05/11/19 07:55) Anaphylaxis varenicline tartrate * [From Chantix] Allergy (Severe, Verified 05/11/19 07:55) Anaphylaxis dogs and grasses Allergy (Uncoded 05/13/19 07:44) Unknown Medications: Lamotragine 200 mg 1x daily Lisinipril 40 mg daily HCTZ 25 mg daily Gabapentin 300 mg 1-2 times daily Oxycodone 5 mg 2 x daily Alprazolam 0.25 mg, prn Review of Systems Cardiovascular: reports: high blood pressure, irregular heart rate or pulse Respiratory: reports: shortness of breath, chronic cough Psychiatric: reports: anxiety, depression, mood disorder Ear/Nose/Throat: reports: wisdom teeth removed Endocrine: reports: sluggishness, too hot or cold Musculoskeletal: reports: joint pain, back pain, joint swelling, muscle pain or cramping, mobility problems Physical Exam Vital signs obtained and entered by: JH, E COMMERCE STRATEGIST Blood Pressure: 156/90 (LEFT ARM ) Cuff size: regular Heart Rate: 68 O2 Saturation: 99 Height: 5 ft 5 in Weight: 222 lb Body Mass Index: 36.9 BMI Classification: Obese Neck circumference: 16 (INCHES ) Heart: regular rate and rhythm Lungs: clear bilaterally Impression and Plan 1. Obstructive Sleep Apnea-Hypopnea Syndrome, extremely severe, with good treatment compliance and excellent apnea control. On CPAP therapy, the patient has better sleep quality and is more rested overall. She states that she does not sleep without it. Patient has a 12-year-old REMstar CPAP by [employer]. She would like to upgrade her device because it is sometimes not turning on and other times losing pressure during the night. Patient states she feels she could use a little more pressure. The patients pressure will be changed to autoCPAP 17 cmH20 for patient comfort. Patient advised to contact me if pressure change is uncomfortable so that it can be adjusted. Goals for apnea control discussed. The patients CPAP is over 5 years old and of reasonable use. In addition, it is losing pressure and sometimes not turning on, a sign of malfunction. Thus, the CPAP will be updated. A DWO prescription will be made. Compliance guidelines for new device and follow up discussed. Patient's apnea severity and rationale for treatment to reduce apnea, improve sleep quality and reduce cardiovascular and cerebrovascular events was reviewed. I also reviewed the benefit of consistent device use of CPAP for hypertension, arrhythmia, depression, anxiety, and mood disorder (Bipolar, PTSD). * Update machine * Update supplies * Change CPAP pressure to 17 cmH2O * Notify me if snoring with mask or feeling that the pressure is too much or too little * Attempt to lose weight * Call this office if any problems using CPAP * Return for follow up in one month after obtaining new machine, or sooner if concerns arise Counseling Topics: Weight loss health impact Visit Type: In Office Time Spent with Patient (minutes): 39 Provider Statement: I spent 100% of the Face to Face Visit with the patient with greater than 50% spent counseling the patient and coordination of care.
== END 2021-12-21 13:23 | disposition home or self-care (01) ==
LOC: SC 13:22
PROVIDERS: ATTEND Nurse Practitioner Family
DX: G47.33 Obstructive sleep apnea (adult) (pediatric) (principal); E66.9 Obesity, unspecified; Z68.36 Body mass index [BMI] 36.0-36.9, adult; F17.210 Nicotine dependence, cigarettes, uncomplicated
CPT/HCPCS: 99203; G0463; 99212

== ENCOUNTER 2022-05-12 13:41 | Outpatient (CLI) | payer MEDICARE, OTHER ==
[2022-05-12 14:10] VITALS: BP 128/68
--- NOTE | 2022-05-12 14:10 | SLEEP CARE CONSULTATION ---
Information from patient questionnaire entered by Mihaela García. I have reviewed and concur with the information entered by Mihaela García. This document represents the service I personally performed and the decisions made by me, Gretchen Arechiga ARNP. History of Present Illness Service Date and Time: 05/12/2022 1341 Previous diagnosis: Extremely Severe, Obstructive Sleep Apnea-Hypopnea Syndrome AHI: 96.9 Reason for follow up: first compliance after device update (SET UP 12/2021) Equipment type: CPAP ([employer] Airsense 10, s/u 01/10/2022, NEED SD CARD FOR DOWNLOAD AND ANY CHANGES) Equipment obtained from: [employer] (getting supplies) Mask style: Full face Mask brand: [employer] (Vitera, small) Backup mask available: No (will keep old mask when replaced) Prior sleep studies: Yes Year and Where: 01/07/2010, [facility] Type of Sleep Study: Polysomnography HPI additional information: JO ANN ALEJANDRO was diagnosed to have extremely severe, AHI 96.9, obstructive sleep apnea-hypopnea syndrome and returned today for CPAP therapy first compliance after updating device follow-up. Sleep Study - Results Type of Sleep Study: Polysomnography Prior sleep studies: Yes Year and Where: 01/07/2010, [facility] CPAP Compliance Data - Data Reviewed with Patient Average duration of nightly device use: 6 hours 27 minutes Compliance rate %: 92 (88/90 days used) Current pressure setting (cmH2O): 17 Average residual AHI: 0.5 Central apnea: 0.0 Obstructive apnea: 0.3 Average large leak: 15.9 lpm Subjective Patient concerns: reports: mask leak noise (needs to change mask cushion). denies: aerophagia, mask discomfort, air blowing in eyes, condensation in mask/hose, nasal congestion, dry mouth, nose, throat, epistaxis Observed to snore while using device: No Current pressure setting perceived as: comfortable On therapy, patient: reports: sleeping better, awakening more refreshed, being more awake and alert during the day, more rested overall. denies: drowsiness while driving Initial [place] Sleepiness Scale score: 6 (12/17/21) Current [place] Sleepiness Scale score: 7 (05/12/22) Allergies and Home Medications Drug allergies reviewed: Yes (see list in EMR) Home medication list reviewed: Yes (Meclizine) Review of Systems Review of systems same as previous: No (Vertigo/drop foot) Physical Exam Vital signs obtained and entered by: MIHAELA Dumont MA Blood Pressure: 128/68 (LEFTS ARM) Cuff size: regular Heart Rate: 74 O2 Saturation: 95 Height: 5 ft 5 in Weight: 215 lb 6.4 oz Body Mass Index: 35.8 BMI Classification: Obese Impression and Plan 1. Obstructive Sleep Apnea-Hypopnea Syndrome, extremely severe, with good treatment compliance and good apnea control. On CPAP therapy, the patient has better sleep quality and is more rested overall. Patient has significant improvement of their sleep apnea and are satisfied with current CPAP therapy. Patient got her a shipment with her new device and the DME sent her the wrong style. Her fullface mask [employer]than[employer] Ruizera is getting worn out and she is getting more mask leak noises. She has tried to get a hold of her DME but not been successful. I will have my office staff assist her to get ahold of them so that she can get the right mask ordered. Patient's apnea severity and rationale for treatment to reduce apnea, improve sleep quality and reduce cardiovascular and cerebrovascular events was reviewed. I also reviewed the benefit of consistent device use of CPAP for hypertension, arrhythmia, depression, anxiety and mood disorder (bipoloar and PTSD). 2. Obesity, unspecified. Currently patients BMI is 35.8. Obesity increases the risk of apnea, CPAP pressure requirements and overall health risks especially cardiovascular and diabetes. Thus patient is advised to lose weight. * Continue CPAP pressure at 17 cmH2O * Notify me if snoring with mask or feeling that the pressure is too much or too little * Attempt to lose weight * Call this office if any problems using CPAP * Return for follow up in 1 year, or sooner if concerns arise Counseling Topics: Spare mask, Weight loss health impact Visit Type: In Office Time Spent with Patient (minutes): 20 Provider Statement: I spent 100% of the Face to Face Visit with the patient with greater than 50% spent counseling the patient and coordination of care.
== END 2022-05-12 13:42 | disposition home or self-care (01) ==
LOC: SC 13:41
PROVIDERS: ATTEND Nurse Practitioner Family
DX: G47.33 Obstructive sleep apnea (adult) (pediatric) (principal); E66.9 Obesity, unspecified; Z68.35 Body mass index [BMI] 35.0-35.9, adult
CPT/HCPCS: 99213; G0463; 99212

== ENCOUNTER 2022-05-19 15:03 | Outpatient (CLI) | payer MEDICARE, OTHER ==
[~2022-05-19 15:03] MED LIST: GADOBUTROL 10 MMOL/10 ML VIAL ONE
[2022-05-19 15:46] LABS: CREATININE 0.7 mg/dL (0.4-1.0)
[2022-05-19] MEDS ORDERED: GADOBUTROL 10 MMOL/10 ML VIAL IVP ONE (15:56)
--- NOTE | 2022-05-19 16:22 | MRI Report ---
PROCEDURE: BRAIN W/WO INDICATIONS: PARESTHESIA, PALPITATIONS CONTRAST: gadavist 9.8ml TECHNIQUE: Noncontrast axial T1 spin echo, axial T2 fast spin echo, sagittal and axial FLAIR, coronal T2 fast sp in echo, axial gradient echo, axial diffusion and ADC through the brain. After the administration of contrast, axial and coronal T1 spin echo with fat saturation through the brain. COMPARISON: None. FINDINGS: Image quality: Excellent. CSF spaces: Basal cisterns are patent. No extra-axial fluid collections. Ventricles are normal in size and shape. Brain: No midline shift. No intracranial bleeds or masses. No abnormal intracranial enhancement. There is cerebral volume loss for age. There is periventricular white matter chronic small vessel is chemic change. The brainstem appears normal. Diffusion-weighted images demonstrate no acute ischemi c insults. No chronic ischemic insults. Normal intravascular flow voids are present. Skull and face: Calvarial marrow is normal in signal. Orbits appear normal. Sinuses: Sinuses and mastoids appear clear. IMPRESSION: 1. Mild volume loss and small vessel ischemic disease. 2. No acute process. No recent infarct. Reviewed by: Beth Craven MD on 05/19/2022 4:21 PM PST Approved by: Beth Craven MD on 05/19/2022 4:21 PM PST Station ID: [id number]
== END 2022-05-19 15:04 | disposition home or self-care (01) ==
LOC: LAB 15:03
PROVIDERS: ATTEND Physician Assistant Medical
DX: R20.2 Paresthesia of skin (principal); M21.372 Foot drop, left foot; R42 Dizziness and giddiness; G31.89 Other specified degenerative diseases of nervous system; I67.82 Cerebral ischemia
CPT/HCPCS: 36415; 70553; 82565; A9585

== ENCOUNTER 2022-05-25 15:03 | Outpatient (CLI) | payer MEDICARE, OTHER | END 2022-05-25 15:04 | disposition home or self-care (01) | LOC: MAC.MOP 15:03 | PROVIDERS: ATTEND Physician Assistant Medical | DX: R00.2 Palpitations (principal) | CPT/HCPCS: 93246 ==

== ENCOUNTER 2022-06-07 09:52 | Outpatient (CLI) | payer MEDICARE, OTHER ==
[2022-06-07 10:07] LABS: BASOPHILS # (AUTO) 0.1 10^3/uL (0.0-0.1); BASOPHILS % (AUTO) 1.1 %; EOSINOPHILS # (AUTO) 0.4 10^3/uL (0.0-0.7); EOSINOPHILS % (AUTO) 6.2 %; HCT - HEMATOCRIT 41.9 % (37.0-47.0); HGB - HEMOGLOBIN 13.1 g/dL (12.0-16.0); LYMPHOCYTES # (AUTO) 1.9 10^3/uL (1.5-3.5); LYMPHOCYTES % (AUTO) 30.9 %; MEAN CORPUSCULAR HEMOGLOBIN 28.5 pg (27.0-31.0); MEAN CORPUSCULAR HGB CONC 31.3 g/dL (32.0-36.0); MEAN CORPUSCULAR VOLUME 91.3 fL (81.0-99.0); MEAN PLATELET VOLUME 9.3 fL (7.9-10.8); MONOCYTES # (AUTO) 0.7 10^3/uL (0.0-1.0); MONOCYTES % (AUTO) 11.6 %; NEUTROPHILS # (AUTO) 3.1 10^3/uL (1.5-6.6); PLT - PLATELET COUNT 272 10^3/uL (130-450); RED BLOOD COUNT 4.59 10^6/uL (4.20-5.40); WHITE BLOOD COUNT 6.3 x10^3/uL (4.8-10.8)
[2022-06-07 10:24] LABS: ALBUMIN/GLOBULIN RATIO 1.2 (1.0-2.2); BILIRUBIN,TOTAL 0.9 mg/dL (0.2-1.0); CALCIUM 9.4 mg/dL (8.5-10.3); CREATININE 0.7 mg/dL (0.4-1.0); POTASSIUM 3.5 mmol/L (3.5-5.0); TOTAL PROTEIN 7.3 g/dL (6.7-8.2)
[2022-06-07 10:38] LABS: THYROID STIMULATING HORMONE 1.53 uIU/mL (0.34-5.60)
[2022-06-07 10:40] LABS: FREE T4 (FREE THYROXINE) 0.78 ng/dL (0.58-1.64)
== END 2022-06-07 09:53 | disposition home or self-care (01) ==
LOC: LAB 09:52
PROVIDERS: ATTEND Psychiatry & Neurology Psychiatry
DX: F39 Unspecified mood [affective] disorder (principal); Z79.899 Other long term (current) drug therapy
CPT/HCPCS: 36415; 80053; 80175; 84439; 84443; 85025

== ENCOUNTER 2022-06-21 10:30 | Outpatient (CLI) | payer MEDICARE, OTHER | END 2022-06-21 10:31 | disposition home or self-care (01) | LOC: MAC.INF 10:30 | PROVIDERS: ATTEND Physician Assistant Medical | DX: I48.91 Unspecified atrial fibrillation (principal); I47.1 Supraventricular tachycardia; I49.1 Atrial premature depolarization; I49.3 Ventricular premature depolarization | CPT/HCPCS: 93248 ==

== ENCOUNTER 2022-06-28 14:43 | Outpatient (CLI) | payer MEDICARE, OTHER ==
--- NOTE | 2022-06-28 18:12 | Ultrasound Report ---
PROCEDURE: Carotid Doppler Complete INDICATIONS: PARESTHESIA, PALPITATIONS TECHNIQUE: Color and pulse Doppler interrogation was performed of both carotid systems, with image documentation and velocity measurements. COMPARISON: None. FINDINGS: Right side: Brachial blood pressure: 134/65 mm Hg. Common carotid artery peak systolic velocity: 61 cm/sec. Internal carotid artery peak systolic velocity: 71 cm/sec. Internal carotid artery end diastolic velocity: 29 cm/sec. External carotid artery peak systolic velocity: 60 cm/sec. ICA/CCA peak systolic ratio: 1.6 . Zarate scale imaging description: Mild plaque. No stenosis identified. Percent internal carotid artery stenosis: Minimal or none . Vertebral artery: Flow direction is antegrade. Left side: Brachial blood pressure: 137/71 mm Hg. Common carotid artery peak systolic velocity: 66 cm/sec. Internal carotid artery peak systolic velocity: 72 cm/sec. Internal carotid artery end diastolic velocity: 27 cm/sec. External carotid artery peak systolic velocity: 57 cm/sec. ICA/CCA peak systolic ratio: 1.09 . Zarate scale imaging description: Mild plaque. No stenosis identified. Percent internal carotid artery stenosis: Minimal, or none . Vertebral artery: Flow direction is antegrade. IMPRESSION: There is mild bilateral plaque. No significant stenosis identified. The estimate of stenosis included in the report of the imaging study was calculated using the NASCET method Reviewed by: Binh Degroot MD on 06/28/2022 6:10 PM PDT Approved by: Binh Degroot MD on 06/28/2022 6:10 PM PDT Station ID: [id number]
== END 2022-06-28 14:44 | disposition home or self-care (01) ==
LOC: DI 14:43
PROVIDERS: ATTEND Physician Assistant Medical
DX: M21.372 Foot drop, left foot (principal); R20.2 Paresthesia of skin; I65.23 Occlusion and stenosis of bilateral carotid arteries; R00.2 Palpitations; I49.3 Ventricular premature depolarization; I51.7 Cardiomegaly
CPT/HCPCS: 93306; 93880

== ENCOUNTER 2022-06-28 14:44 | Outpatient (CLI) | payer MEDICARE, OTHER | END 2022-06-28 14:45 | disposition home or self-care (01) | LOC: DI 14:44 | PROVIDERS: ATTEND Physician Assistant Medical | DX: R20.2 Paresthesia of skin (principal); M21.372 Foot drop, left foot; R00.2 Palpitations; I49.3 Ventricular premature depolarization; I51.7 Cardiomegaly | CPT/HCPCS: 93306 ==

== ENCOUNTER 2022-07-14 07:52 | Outpatient (CLI) | payer MEDICARE, OTHER ==
[2022-07-14 15:34] LABS: CREATININE 0.5 mg/dL (0.4-1.0)
[2022-07-14] MEDS ORDERED: GADOBUTROL 10 MMOL/10 ML VIAL IVP ONE (16:38)
--- NOTE | 2022-07-14 19:25 | MRI Report ---
PROCEDURE: LUMBAR SPINE W/WO INDICATIONS: PARATHESIA CONTRAST: GADAVIST 9.8ML TECHNIQUE: Noncontrast sagittal T1 spin echo and T2 fast spin echo, sagittal STIR, axial T1 and T2 fast spin ech o through the lumbar spine. In cases with scoliosis, additional coronal T2 fast spin echo may be per formed. After the administration of contrast, sagittal and axial T1 spin echo with fat saturation th rough the lumbar spine. COMPARISON: 11/14/[address] without contrast. FINDINGS: Image quality: Excellent. Alignment and curvature: There is normal bony alignment. Interval L3-L4 disc prosthesis and right p osterior lateral alberto and pedicle screw placement at L3-L4. Marrow: Marrow is of normal overall signal. No acute vertebral body compression fractures. No susp icious marrow enhancement. Spinal cord: Conus medullaris terminates at the L1-L2 level. Visualized spinal cord demonstrates no rmal signal, without suspicious enhancement. Paraspinous soft tissues: No paravertebral masses or abnormal enhancement. T12-L1: No significant change. Disc bulge. No canal stenosis. Mild facet hypertrophy. Mild bilateral foraminal narrowing. L1-L2: Unchanged findings. Posterior disc plus osteophyte. Mild facet hypertrophy. No significant canal stenosis. Mild right and [id number] left foraminal narrowing. L2-L3: Interval increase in posterior disc bulge. Facet hypertrophy. Epidural lipomatosis. Mild ca nal stenosis. Mild to moderate bilateral foraminal stenosis. L3-L4: Interval right hemilaminectomy and right posterior lateral alberto and pedicle screw fixation an d interbody prosthesis placement. Resolution of severe canal stenosis. [id number] bilateral for aminal narrowing. L4-L5: Progression of canal stenosis. Interval increase in disc space loss, severe. Posterior disc pl us osteophyte. Facet hypertrophy. Moderate canal stenosis. Although there is metallic artifact from p edicle screw fixation, there appears to be severe right and moderate to severe left foraminal narrowi ng with bilateral foraminal L4 nerve root impingement. L5-S1: Prominent bilateral facet hypertrophy. No canal stenosis. Moderate right foraminal narrowing . IMPRESSION: 1. Interval right hemilaminectomy and right posterior lateral fusion at L3-L4 with resolution of dustin re canal stenosis. 2. Progression of findings at L2-L3, development of mild canal stenosis. 3. Significant interval progression at L4-L5. There is now moderate canal stenosis. There appears to be severe right and moderate to severe left foraminal narrowing with bilateral foraminal L4 nerve shun t impingement. This is location of significant metallic artifact. Comment: Neuroforaminal findings may potentially be better visualized utilizing CT Reviewed by: Binh Degroot MD on 07/14/2022 7:24 PM PDT Approved by: Binh Degroot MD on 07/14/2022 7:24 PM PDT Station ID: [id number]
== END 2022-07-14 07:53 | disposition home or self-care (01) ==
LOC: LAB 07:52
PROVIDERS: ATTEND Physician Assistant Medical
DX: R20.2 Paresthesia of skin (principal); M21.372 Foot drop, left foot; Z98.1 Arthrodesis status; M47.816 Spondylosis without myelopathy or radiculopathy, lumbar region; M51.36 Other intervertebral disc degeneration, lumbar region; M48.061 Spinal stenosis, lumbar region without neurogenic claudication; E88.2 Lipomatosis, not elsewhere classified
CPT/HCPCS: 36415; 72158; 82565; A9585

== ENCOUNTER 2022-10-04 20:54 | Outpatient (CLI) | payer MEDICARE, OTHER ==
--- NOTE | 2022-10-05 08:56 | Ultrasound Report ---
PROCEDURE: Duplex Ext Veins Left INDICATIONS: LEG EDEMA TECHNIQUE: Real-time imaging, as well as color and pulse Doppler interrogation, were performed of the lower extr emity deep veins from the inguinal ligament to the popliteal fossa. COMPARISON: None. FINDINGS: The deep veins are normally compressible, and free of intraluminal thrombus. Color and pu lse Doppler demonstrate normal phasic intraluminal flow. There is normal augmentation response to di stal compression maneuver. IMPRESSION: No evidence of DVT in the left leg. Reviewed by: Deniz Mart MD on 10/05/2022 8:55 AM PDT Approved by: Deniz Mart MD on 10/05/2022 8:55 AM PDT Station ID: [id number]
== END 2022-10-04 20:55 | disposition home or self-care (01) ==
LOC: DI 20:54
PROVIDERS: ATTEND Physician Assistant Medical
DX: R60.0 Localized edema (principal)

== ENCOUNTER 2022-10-15 19:34 | Emergency (ER) | payer MEDICARE, OTHER ==
--- OUTSIDE RECORDS SUMMARY | 2022-10-15 20:05 | EXTERNAL MEDICAL SUMMARY RPT | Continuity of Care Document ---
Author Name Unknown Address [address] [place] [address] Phone Organization [facility] Address [address] [place] [address] Phone Care Team Providers Care Battery Stacker Name Role Phone Anna Torrez Unavailable Unavailable Medications date description facility 2022-08-01 00:00 [facility] 2022-08-22 00:00 [facility] Social History date description facility 2022-08-22 00:00 Smokes tobacco daily ([facility]
[2022-10-15] MEDS: CHERRY SYRUP 10 ML UDC PO ONE (20:56)
[2022-10-15] MEDS: HYDROmorphone 1 MG/ML CARPUJECT IM STA (20:57)
[2022-10-15] MEDS: DEXAMETHASONE 10 MG/ML VIAL PO STA (20:57)
[2022-10-15] MEDS: LIDOCAINE PATCH 5% TOP STA (20:58)
--- NOTE | 2022-10-15 21:21 | ED Physician Documentation ---
PD HPI BACK PAIN - Stated complaint Stated Complaint: BACK PX - Chief complaint Chief Complaint: Back Pain - History obtained from History obtained from: Patient - Additional information Additional information: Patient is a 62-year-old female with a known history of chronic back pain presenting for evaluation of left upper thoracic pain that has been present for 2 to 3 days. She describes it as feeling like a muscle spasm or charley horse. She states that this started with neck pain at 10 days ago when she started sleeping in a different position in a more upright way. She has had pain in the right shoulder blade area as well as the left shoulder blade area over the past week. She states for the past few days it has been in the left side. It is worse with certain movements. No difficulty breathing. No chest pain. Denies any trauma or injury. Does not take blood thinners. No IV drug use or cancer.Denies injections or procedures in the back.She does have pain medications prescribed to her for her chronic lower back pain which she has been using without any significant improvement. She also has Robaxin Which has not helped her symptoms. She denies any radiation to her pain. No numbness or tingling. No weakness in upper or lower extremities.No bowel or bladder incontinence. No fevers. Review of Systems Constitutional: denies: Fever Cardiac: denies: Chest pain / pressure Respiratory: denies: Dyspnea GI: denies: Abdominal Pain, Vomiting Musculoskeletal: reports: Back pain Neurologic: denies: Headache PD PAST MEDICAL HISTORY - Past Medical History Cardiovascular: Hypertension Respiratory: COPD, Sleep apnea, CPAP use Neuro: None Endocrine/Autoimmune: HyPOthyroidism HEENT: None Psych: Depression, Anxiety Musculoskeletal: Chronic back pain - Past Surgical History Past Surgical History: Yes General: Other Ortho: Hip replacement - Present Medications Home Medications: Ambulatory Orders Medication Instructions Recorded Confirmed Gabapentin 300 mg PO BID 04/15/14 05/12/22 Oxycodone HCl [Oxycontin] 5 mg PO BID 04/15/14 05/12/22 hydroCHLOROthiazide 25 mg PO DAILY 04/15/14 05/12/22 [Hydrochlorothiazide] lamoTRIgine [Lamictal] 200 mg PO DAILY 04/15/14 05/12/22 lisinopriL [Lisinopril] 40 mg PO DAILY 04/15/14 05/12/22 ALPRAZolam [Xanax] 0.25 mg PO PRN PRN 12/17/21 05/12/22 Meclizine [Antivert] See Rx Instructions .ROUTE .COMPLEX 05/12/22 05/12/22 Lidocaine Patch 5% [Lidoderm Patch] 1 patch TOP DAILY PRN #10 patch 10/15/22 - Allergies Allergies/Adverse Reactions: Allergies Allergy/AdvReac Type Severity Reaction Status Date / Time albuterol sulfate * Allergy Severe Headache Verified 10/15/22 20:10 [From Combivent] ipratropium bromide * Allergy Severe Headache Verified 10/15/22 20:10 [From Combivent] meloxicam Allergy Severe Anaphylaxis Verified 10/15/22 20:10 varenicline tartrate * Allergy Severe Anaphylaxis Verified 10/15/22 20:10 [From Chantix] albuterol Allergy Unknown Verified 10/15/22 20:10 [From Proventil HFA] varenicline [From Chantix] Allergy Unknown Verified 10/15/22 20:10 dogs and grasses Allergy Unknown Uncoded 10/15/22 20:10 - Social History Does the pt smoke?: Yes Smoking Status: Current every day smoker Does the pt drink ETOH?: No Does the pt have substance abuse?: Yes - Immunizations Immunizations are current?: No Immunizations: TDAP >10years/unknown - POLST Patient has POLST: No PD ED PE NORMAL - General General: Alert and oriented X 3, No acute distress, Well developed/nourished - HEENT HEENT: Atraumatic, PERRL, EOMI, Moist mucous membranes, Pharynx benign - Neck Neck: Supple, no meningeal sign, No bony TTP - Cardiac Cardiac: RRR, No murmur, Strong equal pulses - Respiratory Respiratory: No respiratory distress, Clear bilaterally - Abdomen Abdomen: Soft, Non tender - Back Back: No spinal TTP - Derm Derm: Warm and dry - Extremities Extremities: No deformity, No calf tenderness / cord - Neuro Neuro: Alert and oriented X 3, No motor deficit, Normal speech PD ED PE EXPANDED - Back Back visual: 1 - tenderness Results - Vitals Vitals: Vital Signs - 24 hr 10/15/22 10/15/22 20:03 21:43 Temperature 36.9 C 36.7 C Heart Rate 77 76 Respiratory 20 18 Rate Blood Pressure 156/102 H 140/90 H O2 Saturation 97 98 Oxygen O2 Source Room air PD Medical Decision Making - ED course Complexity details: reviewed results, re-evaluated patient, d/w patient ED course: 2134 - Per RN, patient is feeling much better would like to go home. I did also reevaluate the patient and she states that her pain is significantly improved she is feeling comfortable with continued symptomatic management with the medication she has at home. She understands the need for close follow-up as well as concerning symptoms to return for. Patient is a 62-year-old female presenting for evaluation of upper back pain that has been present for several days.No midline tenderness noted on exam. Patient describes the pain as a spasm and charley horse and appears to be located in the left thoracic region. No chest pain.Pain is reproducible with palpation and worse with certain movements thus I feel that a musculoskeletal etiology is the most likely explanation. I did obtain a chest x-ray to rule out a pulmonary cause which appears to be negative. Patient is feeling better after medications here including IM Dilaudid.No red flag signs or symptoms in regards to her pain. It is not migratory to suggest a dissection. No shortness of breath suggest PE.Patient is counseled on continued supportive care as well as need for follow-up with PCP and concerning symptoms to return for. Departure - Departure Disposition: 01 Home, Self Care Clinical Impression: Upper back pain Condition: Stable Instructions: ED Neck Back Pain General Prescriptions: Lidocaine Patch 5% [Lidoderm Patch] 1 patch TOP DAILY PRN #10 patch PRN Reason: pain Comments: Please continue with your pain medication and muscle relaxers at home as directed. I have also sent a prescription for lidocaine patches to [facility] in [place]. You have also received a dose Of a steroid which should also continue to help for the next several days. If you develop any worsening symptoms such as the pain in a new location, worsening, fevers Or any new concerns please consider return to the emergency department. Discharge Date/Time: 10/15/22 21:43
[2022-10-15 21:50] VITALS: BP 140/90
--- NOTE | 2022-10-15 21:54 | XRAY Report ---
PROCEDURE: Chest 1 View X-Ray INDICATIONS: thoracic pain TECHNIQUE: One view of the chest was acquired. COMPARISON: None. FINDINGS: Surgical changes and devices: None. Lungs and pleura: No pleural effusions or pneumothorax. Lungs are clear. Mediastinum: Mediastinal contours appear normal. Heart size is normal. Bones and chest wall: No suspicious bony lesions. Overlying soft tissues appear unremarkable. IMPRESSION: No acute cardiopulmonary process. Normal for age, source of thoracic pain is not identified. Reviewed by: Patrick Jaimes MD on 10/15/2022 9:53 PM PDT Approved by: Patrick Jaimes MD on 10/15/2022 9:53 PM PDT Station ID: [id number]
== END 2022-10-15 21:43 | disposition home or self-care (01) ==
LOC: ED 19:34
DX: M54.6 Pain in thoracic spine (principal); I10 Essential (primary) hypertension; J44.9 Chronic obstructive pulmonary disease, unspecified; E03.9 Hypothyroidism, unspecified; Z79.899 Other long term (current) drug therapy; Z87.891 Personal history of nicotine dependence
CPT/HCPCS: 71045; 96372; 99283; A9270; J1170

== ENCOUNTER 2023-02-06 06:32 | Day surgery (SDC) | payer MEDICARE, OTHER ==
[2023-02-06] MEDS ORDERED: LACTATED RINGERS 1,000 ML IV ONE ×2 (06:36→07:56)
[2023-02-06] MEDS ORDERED: PROPOFOL 500 MG/50 ML 500 MG/50 ML VIAL ONE ×2 (06:48→07:46)
--- NOTE | 2023-02-06 07:12 | ANESTHESIA ---
Pre-Anesthesia VS, & Labs - Diagnosis screening - Procedure colonoscopy Vital Signs: Temp Pulse Resp BP Pulse Ox O2 Flow Rate 36.1 C L 70 16 154/64 H 93 02/06/23 06:36 02/06/23 06:36 02/06/23 06:36 02/06/23 06:36 02/06/23 06:36 Height: 5 ft 5 in Weight (kg): 95.9 kg Body Mass Index: 35.2 BMI Classification: Obese - NPO >8 hours - Is Patient ?: No - Lab Results Lab results reviewed: Yes Home Medications and Allergies Home Medications: Ambulatory Orders Ipratropium [Atrovent] 2 puffs INH TID PRN 01/30/23 Metoprolol Succinate [Toprol Xl] 25 mg PO DAILY 01/30/23 methocarbamoL [Methocarbamol] 500 mg PO TID PRN 01/30/23 Oxycodone HCl [Oxycontin] 5 mg PO BID 04/15/14 hydroCHLOROthiazide [Hydrochlorothiazide] 25 mg PO DAILY 04/15/14 lamoTRIgine [Lamictal] 300 mg PO DAILY 04/15/14 lisinopriL [Lisinopril] 40 mg PO DAILY 04/15/14 Meclizine [Antivert] See Rx Instructions .ROUTE .COMPLEX 05/12/22 Ipratropium [Atrovent] 2 puffs INH TID PRN 01/30/23 Metoprolol Succinate [Toprol Xl] 25 mg PO DAILY 01/30/23 methocarbamoL [Methocarbamol] 500 mg PO TID PRN 01/30/23 Allergies/Adverse Reactions: Allergies Allergy/AdvReac Type Severity Reaction Status Date / Time albuterol sulfate * Allergy Severe Headache Verified 02/06/23 07:03 [From Combivent] meloxicam Allergy Severe Anaphylaxis Verified 02/06/23 07:03 varenicline tartrate * Allergy Severe Anaphylaxis Verified 02/06/23 07:03 [From Chantix] albuterol Allergy Unknown Verified 02/06/23 07:03 [From Proventil HFA] varenicline [From Chantix] Allergy Unknown Verified 02/06/23 07:03 dogs and grasses Allergy Unknown Uncoded 02/06/23 07:03 Anes History & Medical History - Anesthetic History Anesthesia Complications: reports: No previous complications Family history of Anesthesia Complications: Denies Family history of Malignant Hyperthermia: Denies - Medical History Cardiovascular: reports: Hypertension, Atrial fibrillation (parox, current sinus) Pulmonary: reports: COPD, Sleep apnea, CPAP use (compliant) Gastrointestinal: reports: None Urinary: reports: None Neuro: reports: None Musculoskeletal: reports: Osteoarthritis, Chronic back pain Endocrine/Autoimmune: reports: None Blood Disorders: reports: None Skin: reports: Eczema, Rosacea Smoking Status: Current every day smoker Psychosocial: reports: Cannabis - Surgical History General: reports: Other Orthopedic: reports: Hip replacement, Spine surgery Exam General: Alert, Oriented x3, Cooperative Dental: WNL Mouth Openin Fingerbreadth Neck Mobility: Normal Mallampati classification: III Thyromental Distance: 4-6 cm Respiratory: Lungs clear Cardiovascular: Regular rate Plan Anesthesia Type: General, MAC Consent for Procedure(s) Verified and Reviewed: Yes Code Status: Attempt Resuscitation ASA classification: 3-Severe systemic disease Is this case an emergency?: No
--- NOTE | 2023-02-06 08:14 | ANESTHESIA POST OP EVALUATION ---
Anesthesia Post Eval - Post Anesthesia Eval Vitals: Last Vital Signs Temp 36.3 C L 02/06/23 07:56 Pulse 95 02/06/23 07:56 Resp 14 02/06/23 07:56 BP 100/57 L 02/06/23 07:56 Pulse Ox 97 02/06/23 07:56 O2 Flow Rate CV Function Including HR & BP: Stable Pain Control: Satisfactory Nausea & Vomiting: Negative Mental Status: Baseline Respiratory Status: Airway Patent Hydration Status: Satisfactory Anesthesia Complications: None
[2023-02-06 08:32] VITALS: BP 128/75; O2SAT 98
== END 2023-02-06 06:33 | disposition home or self-care (01) ==
LOC: SDS 06:32
PROVIDERS: ATTEND Surgery
PROC: 0DBN8ZZ Excision of Sigmoid Colon, Via Natural or Artificial Opening Endoscopic (ICD-10-PCS; 2023-02-06)
PROC: 0DBM8ZZ Excision of Descending Colon, Via Natural or Artificial Opening Endoscopic (ICD-10-PCS; principal; 2023-02-06 07:30)
DX: Z12.11 Encounter for screening for malignant neoplasm of colon (principal); D12.4 Benign neoplasm of descending colon; K63.5 Polyp of colon; E66.9 Obesity, unspecified; Z68.35 Body mass index [BMI] 35.0-35.9, adult; I48.0 Paroxysmal atrial fibrillation; J44.9 Chronic obstructive pulmonary disease, unspecified; I10 Essential (primary) hypertension; G47.33 Obstructive sleep apnea (adult) (pediatric); F17.210 Nicotine dependence, cigarettes, uncomplicated
CPT/HCPCS: 45380; 45385; J7120

== ENCOUNTER 2023-05-23 13:41 | Outpatient (CLI) | payer MEDICARE, OTHER ==
--- NOTE | 2023-05-23 14:05 | Sleep Patient Instructions ---
Sleep Center Visit Summary - Patient Visit Information Reason for Visit: Annual visit - Patient Instructions Additional Instructions: You will continue with CPAP therapy with pressure changed to 16 cmH2O. A supply prescription will be updated with your DME. I have added a mask refitting for a hybrid full face mask. Janis should be reaching out to you to help you with this. We encourage you to continue to try to lose weight. Please follow up with the sleep care office in 1 year. - Clinic Information Contact: [facility] [address] [place] [address] [email or web address] T: [phone]
[2023-05-23 14:10] VITALS: BP 150/84; O2SAT 94
--- NOTE | 2023-05-23 14:10 | SLEEP CARE CONSULTATION ---
Information from patient questionnaire entered by Jax García. I have reviewed and concur with the information entered by Jax García. This document represents the service I personally performed and the decisions made by me, Gretchen Arechiga ARNP. History of Present Illness Service Date and Time: 05/23/2023 1341 Previous diagnosis: Extremely Severe, Obstructive Sleep Apnea-Hypopnea Syndrome AHI: 96.9 Reason for follow up: annual (LAST SEEN 04/2022) Equipment type: CPAP (RESMED Airsense 10, s/u 01/10/2022, NEED SD CARD FOR DOWNLOAD AND ANY CHANGES) Equipment obtained from: [employer] (getting supplies) Mask style: Full face Mask brand: [employer] (Simplus, small cushion) Backup mask available: Yes Last cushion change: 1 month Prior sleep studies: Yes Year and Where: 01/07/2010, [facility] Type of Sleep Study: Polysomnography HPI additional information: JO ANN ALEJANDRO was diagnosed to have extremely severe, AHI 96.9, obstructive sleep apnea-hypopnea syndrome and returned today for CPAP therapy annual follow-up. Sleep Study - Results Type of Sleep Study: Polysomnography Prior sleep studies: Yes Year and Where: 01/07/2010, [facility] CPAP Compliance Data - Data Reviewed with Patient Average duration of nightly device use: 6 hours 17 minutes Compliance rate %: 96 (365/365 days used) Current pressure setting (cmH2O): 17 Average residual AHI: 1.5 Central apnea: 0 Obstructive apnea: 0.7 Hypopnea: 0.2 Average large leak: 19.6 L/min Subjective Patient concerns: reports: mask discomfort, mask leak noise, other (bridge of nose soreness). denies: aerophagia, air blowing in eyes, condensation in mask/hose, nasal congestion, dry mouth, nose, throat, epistaxis Observed to snore while using device: No Current pressure setting perceived as: too high On therapy, patient: reports: sleeping better, awakening more refreshed, being more awake and alert during the day, more rested overall. denies: drowsiness while driving Initial [place] Sleepiness Scale score: 6 (12/17/21) Current [place] Sleepiness Scale score: 7 (05/23/23) Allergies and Home Medications Known drug allergies: Yes (as listed) Drug allergies reviewed: Yes Home medication list reviewed: Yes (Lexapro) Allergy and home medication list: Allergies albuterol sulfate * [From Combivent] Allergy (Severe, Verified 05/19/23 15:21) Headache meloxicam Allergy (Severe, Verified 05/19/23 15:21) Anaphylaxis varenicline tartrate * [From Chantix] Allergy (Severe, Verified 05/19/23 15:21) Anaphylaxis albuterol [From Proventil HFA] Allergy (Verified 05/19/23 15:21) Unknown varenicline [From Chantix] Allergy (Verified 05/19/23 15:21) Unknown dogs and grasses Allergy (Uncoded 05/19/23 15:21) Unknown Review of Systems Review of systems same as previous: Yes (NO CHANGE) Physical Exam Vital signs obtained and entered by: JAX Dumont MA Blood Pressure: 150/84 (LEFT ARM) Cuff size: regular Heart Rate: 81 O2 Saturation: 94 Height: 5 ft 5 in Weight: 224 lb Weight change since last visit: 9 lb gain Body Mass Index: 37.3 BMI Classification: Obese Impression and Plan 1. Obstructive Sleep Apnea-Hypopnea Syndrome, extremely severe, with good treatment compliance and good apnea control. On CPAP therapy, the patient has better sleep quality and is more rested overall. Patient has significant improvement of their sleep apnea and is satisfied with current CPAP therapy. Patient feels the pressure is a little too high, she has to tighten her mask sometimes too much and that it is causing her lower teeth to move. I will adjust her pressure to 16 cmH2O. She would also like to try a different style of mask since the when she is using her current [employer] Simplus mask it is causing soreness on the bridge of her nose. I will add a refitting of her fullface mask to her supply prescription. Patient's apnea severity and rationale for treatment to reduce apnea, improve sleep quality and reduce cardiovascular and cerebrovascular events was reviewed. I also reviewed the benefit of consistent device use of CPAP for hypertension, arrhythmia, depression/anxiety and mood disorder (PTSD, bipolar). 2. Obesity, unspecified. Currently patients BMI is 37.3. Obesity increases the risk of apnea, CPAP pressure requirements and overall health risks especially cardiovascular and diabetes. Thus patient is advised to continue to try to lose weight. * Mask refitting for full face mask, try hybrid to reduce pressure on bridge of nose * Change auto CPAP pressure to 16 cmH2O * Update supply prescription * Notify me if snoring with mask or feeling that the pressure is too much or too little * Attempt to lose weight * Call this office if any problems using CPAP * Return for follow up in 12 months, or sooner if concerns arise Adjust device pressure to (cmH2O): 16 Counseling Topics: Spare mask, Weight loss health impact Prescriptions: Device supplies (with mask refitting for full face mask) Follow up with Sleep Care in: 1 year Visit Type: In Office Time Spent with Patient (minutes): 21 Provider Statement: I spent 100% of the Face to Face Visit with the patient with greater than 50% spent counseling the patient and coordination of care.
== END 2023-05-23 13:42 | disposition home or self-care (01) ==
LOC: SC 13:41
PROVIDERS: ATTEND Nurse Practitioner Family
DX: G47.33 Obstructive sleep apnea (adult) (pediatric) (principal); E66.9 Obesity, unspecified; Z68.37 Body mass index [BMI] 37.0-37.9, adult
CPT/HCPCS: 99213; G0463; 99212

== ENCOUNTER 2023-08-13 16:41 | Emergency (ER) | payer MEDICARE, OTHER ==
[2023-08-13 17:02] VITALS: BP 160/80; O2SAT 99
--- NOTE | 2023-08-13 17:14 | XRAY Report ---
PROCEDURE: Wrist 3+V LT INDICATIONS: pain TECHNIQUE: 4 views of the wrist were acquired. COMPARISON: None. FINDINGS: Bones: No fractures or dislocations. No suspicious bony lesions. Soft tissues: No suspicious soft tissue calcifications or masses. IMPRESSION: No acute bony abnormality. Reviewed by: Sidney Jung MD on 08/13/2023 5:12 PM PDT Approved by: Sidney Jung MD on 08/13/2023 5:12 PM PDT Station ID: [id number]
--- NOTE | 2023-08-13 17:14 | ED Physician Documentation ---
PD HPI LOWER EXT INJURY - Stated complaint Stated Complaint: L ARM PX, FALL - Chief complaint Chief Complaint: Trauma Ext - History obtained from History obtained from: Patient - Additional information Additional information: Trip and fall last night in her backyard while walking her dog and FOOSH onto left wrist with moderate pain. Declines pain medication on initial evaluation. No other injuries. PD PAST MEDICAL HISTORY - Past Medical History Past Medical History: Yes Cardiovascular: Hypertension, Atrial fibrillation Respiratory: COPD, Sleep apnea, CPAP use Neuro: None Endocrine/Autoimmune: None GI: None : None HEENT: Chronic vision loss Psych: Depression, Anxiety Musculoskeletal: Osteoarthritis, Chronic back pain Derm: Eczema, Rosacea - Past Surgical History Past Surgical History: Yes General: Other Ortho: Hip replacement, Spine surgery - Present Medications Home Medications: Ambulatory Orders Medication Instructions Recorded Confirmed Oxycodone HCl [Oxycontin] 5 mg PO BID 04/15/14 08/13/23 hydroCHLOROthiazide 25 mg PO DAILY 04/15/14 08/13/23 [Hydrochlorothiazide] lamoTRIgine [Lamictal] 300 mg PO DAILY 04/15/14 08/13/23 lisinopriL [Lisinopril] 40 mg PO DAILY 04/15/14 08/13/23 Escitalopram [Lexapro] 10 mg PO DAILY 05/23/23 08/13/23 ALPRAZolam [Xanax] 0.25 mg PO BID PRN 08/13/23 08/13/23 - Allergies Allergies/Adverse Reactions: Allergies Allergy/AdvReac Type Severity Reaction Status Date / Time albuterol sulfate * Allergy Severe Headache Verified 08/13/23 16:46 [From Combivent] meloxicam Allergy Severe Anaphylaxis Verified 08/13/23 16:46 varenicline tartrate * Allergy Severe Anaphylaxis Verified 08/13/23 16:46 [From Chantix] albuterol Allergy Unknown Verified 08/13/23 16:46 [From Proventil HFA] varenicline [From Chantix] Allergy Unknown Verified 08/13/23 16:46 dogs and grasses Allergy Unknown Uncoded 08/13/23 16:46 - Social History Does the pt smoke?: Yes Smoking Status: Current every day smoker Does the pt drink ETOH?: No Does the pt have substance abuse?: Yes - Immunizations Immunizations are current?: No Immunizations: TDAP >10years/unknown - POLST Patient has POLST: No PD ED PE NORMAL - Vitals Vital signs reviewed: Yes - General General: Alert and oriented X 3, No acute distress - Derm Derm: Normal color, Warm and dry - Extremities Extremities: Other (Moderate pain of the distal dorsal wrist without snuffbox tenderness. She has intact range of motion of the wrist. No hand tenderness. Normal neurovascular function in the left hand.) - Neuro Neuro: Alert and oriented X 3, Normal speech Results - Vitals Vitals: Vital Signs - 24 hr 08/13/23 16:46 Temperature 36.5 C Heart Rate 70 Respiratory 18 Rate Blood Pressure 160/80 H O2 Saturation 99 Oxygen O2 Source Room air - Rads (name of study) 4 view x-ray left wrist negative Relevant Findings:: Final report received, EMP independent interpretation of test PD Medical Decision Making - ED course ED course: She presents with a left wrist injury after a FOOSH. She does not have snuffbox tenderness. She has relatively good range of motion. X-rays were negative. Placed in a Velcro wrist splint with close return precautions and follow-up precautions. Departure - Departure Disposition: 01 Home, Self Care Clinical Impression: Left wrist sprain Qualifiers: Encounter type: initial encounter Qualified Code(s): S63.502A - Unspecified sprain of left wrist, initial encounter Condition: Good Record reviewed to determine appropriate education?: Yes Instructions: ED Sprain Wrist Comments: The x-ray looks okay. You can wear the wrist plan for comfort and take Tylenol and/or ibuprofen as needed for aches and pains. Return if worse. If not improv ed in a week follow-up with your doctor for consideration for repeat radiographs. Forms: PCP List
== END 2023-08-13 17:25 | disposition home or self-care (01) ==
LOC: ED 16:41
DX: S63.502A Unspecified sprain of left wrist, initial encounter (principal); W01.0XXA Fall on same level from slipping, tripping and stumbling without subsequent striking against object, initial encounter; Y93.K1 Activity, walking an animal; Y92.007 Garden or yard of unspecified non-institutional (private) residence as the place of occurrence of the external cause; F17.200 Nicotine dependence, unspecified, uncomplicated
CPT/HCPCS: 99283